=== PATIENT | male | born 1980 | race Two or more races ===

== ENCOUNTER 2017-03-13 23:50 | Emergency (ER) | payer SELFPAY ==
[2017-03-14 00:07] VITALS: BMI 53.2
[2017-03-14 00:10] VITALS: BP 132/83; PULSE 112; RESP 18; TEMP 98.3; O2SAT 95
--- NOTE | 2017-03-14 00:53 | ED PDOC ---
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 Patient states that symptoms began an hour prior after eating fried chicken at a restaurant. Patient with a history of allergy to seafoods, and thinks that chicken was cooked in the same oil as shrimp. Also complains of mild throat discomfort but denies throat fullness. Separately, patient also complains of chest pain associated with shortness of breath and diaphoresis since last night. States he woke up from sleep in the middle of the night yesterday with these symptoms. Describes the quality of chest pain as "someone sitting on the chest", and states pain radiates to the shoulder and jaw. Notes of numbness to 1st and 2nd digits of left hand. Patient informs that shortness of breath resolved 45 minutes since onset, however states that chest pain has been persistent throughout the day. States he has taken multiple Tylenols for minimal relief. Last took Lovenox at 10 pm yesterday night. Patient recently came from [place] 4 days prior to his brother in-law's house in [place]. Denies any fever, chills, headache, dizziness, nausea, vomiting, diarrhea, urinary symptoms, or any other complaints at this time. PMD: None. 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 - Integumentary Hx Dermatological Disorder: No - Musculoskeletal/Rheumatological Hx Musculoskeletal Disorders: No - Gastrointestinal Hx Gastrointestinal Disorders: No - Genitourinary/Gynecological Hx Genitourinary Disorders: No - Psychiatric Hx Psychophysiologic Disorder: No Hx Substance Use: No - Surgical History Hx Coronary Stent: Yes (X2) Family/Social History - Physician Review Nursing Documentation Reviewed: Yes Family/Social History: No Known Family HX Smoking Status: Never Smoked Hx Alcohol Use: No Hx Substance Use: No Allergies/Home Meds Allergies/Adverse Reactions: Allergies aspirin Allergy (Verified 03/14/17 00:06) RASH heparin Allergy (Verified 03/14/17 00:06) ANAPHYLAXIS naproxen [From Aleve] Allergy (Verified 03/14/17 00:06) ANAPHYLAXIS nitroglycerin Allergy (Verified 03/14/17 00:06) RASH shellfish derived Allergy (Verified 03/14/17 00:06) ANAPHYLAXIS Home Medications: Home Meds Medication Instructions Recorded Confirmed ARIPiprazole [Abilify] 15 mg PO DAILY 03/14/17 03/14/17 Alprazolam [Xanax] 2 mg PO Q8H PRN 03/14/17 03/14/17 Atorvastatin [Lipitor] 40 mg PO DAILY 03/14/17 03/14/17 Clopidogrel [Plavix] 75 mg PO DAILY 03/14/17 03/14/17 Enoxaparin Sodium [Lovenox] 150 mg SQ Q12 03/14/17 03/14/17 Furosemide [Lasix] 40 mg PO DAILY 03/14/17 03/14/17 Lisinopril [Zestril] 10 mg PO DAILY 03/14/17 03/14/17 Metoprolol Tartrate [Lopressor] 50 mg PO BID 03/14/17 03/14/17 Trazodone HCl 150 mg PO HS 03/14/17 03/14/17 Review of Systems - Physician Review All systems were reviewed & negative as marked: Yes - Review of Systems Constitutional: Normal. absent: Fatigue, Fevers ENT: Other (mild throat discomfort ) Respiratory: SOB. absent: Cough, Sputum Cardiovascular: Chest Pain. absent: Palpitations Gastrointestinal: absent: Abdominal Pain, Diarrhea, Vomiting Genitourinary Male: Normal Musculoskeletal: Other (bilateral arm swelling and redness ) Neurological: Normal. absent: Headache, Dizziness Psychiatric: Normal Physical Exam Vital Signs Reviewed: Yes Vital Signs Temp Pulse Resp BP Pulse Ox 03/14/17 00:10 98.3 F 112 H 18 132/83 95 Temperature: Other (obese male ambulating around the ED without issue) Blood Pressure: Normal Pulse: Tachycardic Respiratory Rate: Normal Appearance: Positive for: Well-Appearing, Non-Toxic, Comfortable Pain Distress: None Mental Status: Positive for: Alert and Oriented X 3 - Systems Exam Head: Present: Atraumatic, Normocephalic Pupils: Present: PERRL Conjunctiva: Present: Normal Respiratory/Chest: Present: Clear to Auscultation, Good Air Exchange. No: Respiratory Distress, Accessory Muscle Use Cardiovascular: Present: Normal S1, S2, Tachycardic. No: Murmurs Abdomen: Present: Normal Bowel Sounds. No: Tenderness, Distention, Peritoneal Signs, Rebound, Guarding Upper Extremity: Present: Normal ROM, NORMAL PULSES, Swelling, Erythema, Neurovascularly Intact. No: Cyanosis, Edema, Tenderness, Deformity Lower Extremity: Present: Normal Inspection. No: Edema Neurological: Present: GCS=15, CN II-XII Intact, Speech Normal Skin: Present: Warm, Dry, Normal Color. No: Rashes Psychiatric: Present: Alert, Oriented x 3, Normal Insight, Normal Concentration Medical Decision Making ED Course and Treatment: 03/14/17 00:55 Impression: A 37 year old male who presents to the emergency department complaining of bilateral arm swelling and redness for past hour. Patient also complains of chest pain and shortness of breath since yesterday. Differential Diagnosis include but are not limited to: PE, ACS, cellulitis Plan: -- Labs -- Troponin -- Chest X-ray -- Reassess and disposition Progress Notes: 03/14/17 00:56 Aspirin, Nitro and heparin not given due to allergy. Patient took Lovenox at 10 pm today. 03/14/17 02:40 EKG shows sinus tachycardia at 119bpm with normal intervals and no ST changes. Cxray negative. 03/14/17 02:41 Trop x 1 negative. Patient has requested narcotic pain medication multiple times. Patient keeps changing story multiple times. He told me that his family just in the [facility] but he is coming from [place] and then told the nurses other versions such as he just came from [place]. He is now refusing blood draws. He has no ID and I am concerned that there is an element of narcotic abuse. 03/14/17 02:43 I told patient that I am concerned that I am not getting an accurate story, that this is in fact similar to a patient presentation at [facility] I had years ago, and that I need him to tell me what is going on so I can help. Patient has cardiac disease and PE and needs IV access for CT angio and I need accurate information to care for him. I explained this to the patient and then explained that I would step out and come back so we could talk further. I stepped out of room so that registration could again get information from the patient. He then eloped from the ED. - Lab Interpretations Lab Results: 03/14/17 01:10 03/14/17 01:10 Lab Results 03/14/17 01:10: Sodium 139, Potassium 3.8, Chloride 106, Carbon Dioxide 23, Anion Gap 14, BUN 10, Creatinine 0.9, Est GFR ( Amer) > 60, Est GFR (Non- Af Amer) > 60, Random Glucose 194 H, Calcium 9.3, Total Bilirubin 1.2, AST 36, ALT 49, Alkaline Phosphatase 80, Total Creatine Kinase 116, Troponin I < 0.01, Total Protein 7.5, Albumin 4.2, Globulin 3.3, Albumin/Globulin Ratio 1.3 03/14/17 01:10: WBC 9.8, RBC 4.48, Hgb 13.1 L, Hct 39.9 L, MCV 89.1, MCH 29.2, MCHC 32.8, RDW 14.8 H, Plt Count 235, MPV 11.0, Gran % 66.1, Lymph % (Auto) 19.2 L, Dale % (Auto) 11.6 H, Eos % (Auto) 2.5, Baso % (Auto) 0.6, Gran # 6.48, Lymph # 1.9, Dale # 1.1 H, Eos # 0.3, Baso # 0.06 - RAD Interpretation Radiology Orders: 03/14/17 00:38 CHEST PORTABLE [RAD] Stat - Scribe Statement The provider has reviewed the documentation as recorded by the Gregibe Pratibha Dixon Provider Attestation: All medical record entries made by the Scribe were at my direction and personally dictated by me. I have reviewed the chart and agree that the record accurately reflects my personal performance of the history, physical exam, medical decision making, and the department course for this patient. I have also personally directed, reviewed, and agree with the discharge instructions and disposition. Disposition/Present on Arrival - Present on Arrival Any Indicators Present on Arrival: No History of DVT/PE: No History of Uncontrolled Diabetes: No Urinary Catheter: No History of Decub. Ulcer: No History Surgical Site Infection Following: None - Disposition Have Diagnosis and Disposition been Completed?: Yes Diagnosis: Chest pain Disposition: LEFT W/O TREATMENT - ER ONLY Disposition Time: 02:55 Patient Plan: Other (Eloped) Condition: UNKNOWN Discharge Instructions (ExitCare): Chest Pain (ED)
[2017-03-14 01:24] LABS: ADD MANUAL DIFF? NO
[2017-03-14 01:55] LABS: BASO # 0.06 K/mm3 (0.0-2.0); BASO % 0.6 % (0.0-3.0); EOS # 0.3 (0.0-0.7); EOS % 2.5 % (1.5-5.0); GRAN # 6.48 (1.4-6.5); GRAN % 66.1 % (50.0-68.0); HEMATOCRIT 39.9 % (42.0-52.0); LYMPH # 1.9 (1.2-3.4); LYMPH % 19.2 % (22.0-35.0); MEAN CELL VOLUME 89.1 fL (80.0-105.0); MEAN CORPUSCULAR HEMOGLOBIN 29.2 pg (25.0-35.0); MEAN CORPUSCULAR HGB CONC 32.8 g/dl (31.0-37.0); MONO # 1.1 (0.1-0.6); MONO % 11.6 % (1.0-6.0); PLATELET COUNT 235 10^3/uL (120.0-450.0); RED CELL DISTRIBUTION WIDTH 14.8 % (11.5-14.5); WHITE BLOOD COUNT 9.8 10^3/ul (4.5-11.0)
[2017-03-14 02:46] LABS: ALB/GLOB RATIO 1.3 (1.1-1.8); ALKALINE PHOSPHATASE 80 U/L (38-133); ALT/SGPT 49 U/L (7-56); AST/SGOT 36 U/L (15-59); BILIRUBIN,TOTAL 1.2 mg/dL (0.2-1.3); BLOOD UREA NITROGEN 10 mg/dL (7-21); CALCIUM 9.3 mg/dL (8.4-10.5); CARBON DIOXIDE 23 mmol/L (21-33); CHLORIDE 106 mmol/L (98-107); GFR AFRICAN-AMERICAN > 60; GLUCOSE,RANDOM 194 mg/dL (70-110); SODIUM 139 mmol/L (132-148); TOTAL PROTEIN 7.5 g/dL (5.8-8.3)
[2017-03-14 02:48] LABS: TROPONIN I < 0.01 ng/mL
[2017-03-14 02:49] LABS: POTASSIUM 3.8 mmol/L (3.6-5.0)
--- NOTE | 2017-03-14 08:26 | RAD ---
HISTORY: chest pain COMPARISON: No prior. FINDINGS: LUNGS: There is right basilar atelectasis. The left lung is clear. PLEURA: No significant pleural effusion identified, no pneumothorax apparent. CARDIOVASCULAR: Normal. OSSEOUS STRUCTURES: No significant abnormalities. VISUALIZED UPPER ABDOMEN: Normal. OTHER FINDINGS: None. IMPRESSION: No acute findings.
--- NOTE | 2017-03-14 19:05 | CARD ---
APPROVED REPORT EKG Measurement Heart [id number] <Conclusion> Sinus tachycardia Otherwise normal ECG
== END 2017-03-14 02:55 | disposition left against medical advice (07) ==
LOC: ED 23:50
DX: R07.9 Chest pain, unspecified (principal); I11.0 Hypertensive heart disease with heart failure; I50.9 Heart failure, unspecified